=== PATIENT | female | born 1965 | race Caucasian/White ===

== ENCOUNTER → 2024-06-09 15:29 | Outpatient (CLI) | payer OTHER, SELFPAY ==
--- NOTE | 2024-06-09 15:33 | DI.MRI.S_ITS ---
PROCEDURE: MR KNEE RT WO CON INDICATIONS: PAIN IN RIGHT KNEE TECHNIQUE: Noncontrast sagittal PD fast spin echo and T2 fast spin echo with fat saturation, sagittal 3-D FLASH with fat saturation; coronal T1 spin echo and PD fast spin echo with fat saturation, and axial PD fast spin echo with fat saturation through the knee. COMPARISON: [facility] [place], CR, XR KNEE 4+ VIEWS RIGHT, 06/01/2024, 14:43. [facility] [place], MR, MR KNEE RIGHT WITHOUT CONTRAST, 05/01/2021, 13:19. FINDINGS: Image quality: Diagnostic Menisci: Medial: Horizontal and oblique complex tear of the body and posterior horn of the medial meniscus, similar morphology to 2021. Lateral: Horizontal and oblique tear of the body, anterior horn, and posterior horn the lateral meniscus, slightly more extensive than 202. Cruciate ligaments: Very ill-defined fibers of the ACL. Mild signal abnormality also seen throughout the PCL Medial structures: MCL: Intact Pes anserine tendons: Intact Semimembranosus: Intact Lateral structures: LCL: Mild proximal edema Biceps femoris: Intact IT band: Intact Popliteus tendon: Mild insertional tendinopathy Anterior structures: Extensor mechanism: Mild edema in the proximal patellar tendon and distal quadriceps tendon Fat pads: Mild Hoffa's fat pad edema. Medial retinaculum: Intact. Trochlea: There is lateral patellar tilt. Borderline abnormal TT TG distance. The trochlea appears shallow. Bone and joint: Bones: No acute fracture Cartilage: Partial-thickness cartilage loss throughout the patella, slightly worse, but without subchondral edema. [id number] chondral heterogeneity seen in the medial and lateral compartments. Joint space: Mild effusion. Small ganglion cysts at the posterior capsule. Garza's cyst: None Soft tissues: No significant vascular or other soft tissue pathology. IMPRESSION: Meniscal tears as described above, the lateral tear is slightly more extensive than 2022. Medial tear is similar. Ill-defined ACL fibers likely due to high-grade prior injury versus high-grade mucoid degeneration. Suspect sprains of the PCL and LCL also present. Adjacent popliteus insertional tendinopathy. Extensor mechanism tendinopathy and adjacent Hoffa's fat pad edema. Lateral patellar tilt with borderline abnormal TT TG distance and shallow trochlea. Overall [id number] degree of osteoarthrosis. 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 Mild joint effusion. Dictated by: Howie Edward M.D. on 06/10/2024 at 7:00 Approved by: Howie Edward M.D. on 06/10/2024 at 7:06
== END ==
PROVIDERS: Referring Provider Orthopaedic Surgery; Visit Provider Orthopaedic Surgery
DX: S83.231A Complex tear of medial meniscus, current injury, right knee, initial encounter (principal); S83.281A Other tear of lateral meniscus, current injury, right knee, initial encounter; M17.11 Unilateral primary osteoarthritis, right knee; M22.41 Chondromalacia patellae, right knee; M25.461 Effusion, right knee; M25.561 Pain in right knee
CPT/HCPCS: 73721